=== PATIENT | female | born 1940 | race Caucasian/White ===

== ENCOUNTER 2017-10-08 07:31 | Day surgery (SDC) | payer OTHER ==
[~2017-10-08] VITALS: Ht 154.9 cm; Wt 65.3 kg
[2017-10-08] MEDS ORDERED: CEFAZOLIN SOD 1 GM/ ISO 50 ML PREMIX IV ONE (08:30)
[2017-10-08] MEDS ORDERED: LR 1,000 ML IV SCH (10:38)
[2017-10-08] MEDS ORDERED: METOCLOPRAMIDE HCL 10 MG/2 ML VIAL IVP PRN (10:45)
[2017-10-08] MEDS ORDERED: HYDROmorphone 2 MG/ML VIAL IVP PRN (10:45)
[2017-10-08] MEDS ORDERED: MEPERIDINE HCL/PF 25 MG/ML DISP.SYRIN IVP PRN (10:45)
[2017-10-08] MEDS ORDERED: MEPERIDINE HCL/PF 50 MG/ML AMP IVP PRN ×2 (10:45)
[2017-10-08] MEDS ORDERED: KETOROLAC TROMETHAMINE 30 MG VIAL IVP PRN ×2 (10:45)
[2017-10-08] MEDS ORDERED: HYDROmorphone 1 MG INJ. 1 MG/ML AMPUL IVP PRN ×3 (10:45→11:15)
[2017-10-08] MEDS ORDERED: D5/0.45 NS 1,000 ML IV SCH (11:01)
[2017-10-08] MEDS ORDERED: NS IRRIG SOLN 1000 ML IR ONE (11:10)
[2017-10-08] MEDS ORDERED: ROCURONIUM BROMIDE 10 MG/ML (ZEMURON) ONE (11:10)
[2017-10-08] MEDS ORDERED: KETOROLAC TROMETHAMINE 30 MG VIAL ONE (11:10)
[2017-10-08] MEDS ORDERED: ONDANSETRON HCL 4 MG/2 ML VIAL ONE (11:10)
[2017-10-08] MEDS ORDERED: BUPIVACAINE /PF 0.25% 30 ML VIAL INJ ONE (11:10)
[2017-10-08] MEDS ORDERED: fentaNYL CITRATE/PF 100 MCG/2 ML AMP ONE (11:10)
[2017-10-08] MEDS ORDERED: MIDAZOLAM HCL 5 MG/ML VIAL (VERSED) IV ONE (11:10)
[2017-10-08] MEDS ORDERED: LR 1,000 ML IV.SOLN IV ONE (11:10)
[2017-10-08] MEDS ORDERED: SEVOFLURANE 15 MIN GAS INH ONE (11:10)
[2017-10-08] MEDS ORDERED: PROPOFOL 200MG/ 20ML VIAL (DIPRIVAN) IV ONE (11:10)
[2017-10-08] MEDS ORDERED: HYDROcodone/ACETAMIN 5-325 MG TAB (NORCO/ VICODIN) PO PRN ×2 (11:15)
[2017-10-08 12:10] VITALS: BP_SYST 128
== END 2017-10-08 16:30 | disposition home or self-care (01) ==
LOC: SDS 07:31 → SMU 07:33 → EDSTATUS 10:00 → SDS 16:30
PROVIDERS: ATTEND Colon & Rectal Surgery
DX: D18.09 Hemangioma of other sites (principal); I10 Essential (primary) hypertension; E11.39 Type 2 diabetes mellitus with other diabetic ophthalmic complication; E66.9 Obesity, unspecified; Z89.439 Acquired absence of unspecified foot; Z80.0 Family history of malignant neoplasm of digestive organs; Z87.891 Personal history of nicotine dependence; Z88.8 Allergy status to other drugs, medicaments and biological substances; Z79.899 Other long term (current) drug therapy; Z98.890 Other specified postprocedural states; N63.20 Unspecified lump in the left breast, unspecified quadrant
CPT/HCPCS: 19081; 76098-TC; 82962; 88305; 88307; J0690; J1885; J2250; J2405; J2704; J3010; J3490; J7120